=== PATIENT | female | born 1945 | race Caucasian/White ===

== ENCOUNTER → 2016-12-27 | Outpatient (CLI) | payer MEDICARE ==
[~2016-12-27] MED LIST: AMIT75TA PO; ASCO10004 PO; CALC600T4 PO; CHOL2000 PO; GABA300C10 PO; GLUC100015 PO; MAGN300C PO; MELO-190 PO; OMEG500C PO; POTA99TA8 PO
[2016-12-27 09:20] LABS: HEMOGLOBIN 14.7 g/dL (11.7-16.4)
[2016-12-27 09:32] LABS: ASPARTATE AMINO TRANSFERASE 18 U/L (15-37); BLOOD UREA NITROGEN 25 mg/dL (7-18)
[2016-12-28 13:06] LABS: THYROGLOBULIN AB <1.0 IU/mL (0.0-0.9)
== END | disposition home or self-care (01) ==
LOC: STAR 08:13
PROVIDERS: ATTEND Surgery
DX: Z01.818 Encounter for other preprocedural examination (principal)
CPT/HCPCS: 36415; 71020; 80053; 84432; 85025; 86800; 93005

== ENCOUNTER 2017-01-01 10:31 | Observation (INO) | payer MEDICARE ==
[~2017-01-01] VITALS: Ht 167.6 cm; Wt 90.5 kg
[2017-01-01] MEDS ORDERED: OXYcodone/APAP 5/325MG TABLET PO PRN (11:00)
[2017-01-01] MEDS ORDERED: HYDROmorphone 1 MG/ML, 1ML IV PRN ×2 (11:00→13:30)
[2017-01-01] MEDS ORDERED: DIPHENHYDRAMINE 50 MG/ML, 1ML IV PRN (11:00)
[2017-01-01] MEDS ORDERED: DIPHENHYDRAMINE 25 MG CAPSULE PO PRN (11:00)
[2017-01-01] MEDS ORDERED: ACETAMINOPHEN 500 MG TABLET PO ONE (11:00)
[2017-01-01] MEDS ORDERED: ONDANSETRON 2MG/ML, 2ML IVPush PRN (11:00)
[2017-01-01] MEDS: LACTATED RINGERS 1,000 ML IV SCH ×2 (11:16→19:15)
[2017-01-01 11:22] VITALS: BP 145/94
[2017-01-01] MEDS ORDERED: FENTANYL PF 250 MCG/5ML ONE (12:39)
[2017-01-01] MEDS ORDERED: PROPOFOL 10 MG/ML, 20ML ONE (12:40)
[2017-01-01] MEDS ORDERED: EPHEDRINE 50 MG/ML, 1ML ONE (12:40)
[2017-01-01] MEDS ORDERED: ONDANSETRON 2MG/ML, 2ML ONE (12:40)
[2017-01-01] MEDS ORDERED: DEXAMETHASONE 4 MG/ML, 1ML ONE (12:40)
[2017-01-01] MEDS ORDERED: SUCCINYLCHOLINE 20 MG/ML, 10ML ONE (12:40)
[2017-01-01] MEDS ORDERED: ALBUTEROL SULFATE 2.5 MG/3 ML NPPB PRN (13:30)
[2017-01-01] MEDS ORDERED: ACETAMINOPHEN 325 MG TABLET PO PRN (13:30)
[2017-01-01] MEDS ORDERED: hydrALAzine 20 MG/ML, 1ML IV PRN (13:30)
[2017-01-01] MEDS ORDERED: METOPROLOL 1 MG/ML, 5ML IV PRN (13:30)
[2017-01-01] MEDS ORDERED: OXYcodone 5 MG/5 ML ORAL.SOL UDC PO PRN (13:30)
[2017-01-01] MEDS ORDERED: OXYcodone 5 MG/5 ML ORAL.SOL UDC ONE (14:43)
[2017-01-01] MEDS ORDERED: ACETAMINOPHEN 650 MG/20.3 ML UDC ONE (14:43)
[2017-01-01] MEDS ORDERED: FENTANYL PF 100 MCG/2ML ONE (14:43)
[2017-01-01] MEDS: FENTANYL PF 100 MCG/2ML IV PRN ×2 (14:46→15:00)
[2017-01-01 17:51] VITALS: BP 115/68
[2017-01-01] MEDS: POTASSIUM CHLORIDE 20 MEQ in D5%-0.45% NACL 1,000 ML IV SCH ×3 (18:40→23:53)
[2017-01-01 20:23] VITALS: BP 113/61
[2017-01-01] MEDS ORDERED: GABAPENTIN 300 MG CAPSULE PO SCH (21:00)
[2017-01-02 00:15] VITALS: BP 104/54
[2017-01-02 04:04] VITALS: BP 108/63
[2017-01-02] MEDS ORDERED: LEVOTHYROXINE 125 MCG TABLET PO SCH (06:00)
[2017-01-02 07:40] VITALS: BP 128/64
[2017-01-02] MEDS ORDERED: AMITRIPTYLINE 25 MG TABLET PO SCH (09:00)
[2017-01-02] MEDS: POTASSIUM CHLORIDE 20 MEQ in D5%-0.45% NACL 1,000 ML IV SCH (10:30)
[2017-01-02 12:54] VITALS: BP 112/55
[2017-01-02] MEDS ORDERED: OXYC-302 PO (13:50)
[2017-01-02] MEDS ORDERED: LEVO125T PO (13:50)
== END 2017-01-02 14:06 | disposition home or self-care (01) ==
LOC: OUT 10:31 → ORIP 10:35 → 2NW 15:40 → 4NOR 15:40 → DCLOUNGE 01-02 13:45
PROVIDERS: ADMIT Surgery; ATTEND Surgery
DX: E04.2 Nontoxic multinodular goiter (principal); R22.1 Localized swelling, mass and lump, neck
CPT/HCPCS: 36415; 60240; 60512; 82040; 82310; 88307; 95865; 95940; C1760; G0378; J0330; J1100; J2405; J2704; J3010; J3480; J7120

== ENCOUNTER 2020-04-21 10:23 | Outpatient (CLI) | payer MEDICARE ==
[~2020-04-21 10:23] MED LIST changes: +LEVO125T PO; -MELO-190 PO; +MELO7.5T31 PO; +OXYC-302 PO
[2020-04-21 11:35] LABS: BASOPHILS # (AUTO) 0.03 x10^3/uL (0-0.1); BASOPHILS % (AUTO) 0 % (0-1); EOSINOPHILS # (AUTO) 0.27 x10^3/uL (0-0.4); EOSINOPHILS % (AUTO) 5 % (1-7); LYMPHOCYTES # (AUTO) 1.67 x10^3/uL (1-3.4); LYMPHOCYTES % (AUTO) 28 % (22-44); MD NO; MEAN CORPUSCULAR HEMOGLOBIN 31.1 pg (27.0-34.8); MEAN CORPUSCULAR HGB CONC 33.3 g/dL (32.4-35.8); MEAN CORPUSCULAR VOLUME 93.2 fL (80-100); MEAN PLATELET VOLUME 8.5 fL (7.4-10.4); MONOCYTES % (AUTO) 8 % (2-9); NEUTROPHILS # (AUTO) 3.43 x10^3/uL (1.8-6.8); NEUTROPHILS % (AUTO) 58 % (42-75); PLATELET COUNT 230 x10^3/uL (130-400); RED BLOOD COUNT 4.72 x10^6/uL (3.82-5.3); RED CELL DISTRIBUTION WIDTH 13.1 % (9.6-15.2)
[2020-04-21 11:40] LABS: INTERNATIONAL NORMALIZED RATIO 0.95 (0.93-1.1); PROTHROMBIN TIME 9.8 Seconds (9.6-11.5)
[2020-04-21 11:44] LABS: ANION GAP 3 mmol/L (5-15); CHLORIDE 109 mmol/L (98-107); CREATININE 0.88 mg/dL (0.55-1.02)
[2020-04-21] MEDS ORDERED: AMIT25TA PO (12:16)
== END 2020-04-21 23:59 | disposition home or self-care (01) ==
LOC: STAR 10:23
PROVIDERS: ATTEND Orthopaedic Surgery
DX: Z01.818 Encounter for other preprocedural examination (principal); M17.11 Unilateral primary osteoarthritis, right knee; Z79.899 Other long term (current) drug therapy
CPT/HCPCS: 36415; 80048; 83036; 85025; 85610; 85730; 87081; 87147; 87806; G0475

== ENCOUNTER 2020-04-22 09:28 | Outpatient (CLI) | payer MEDICARE ==
[~2020-04-22 09:28] MED LIST changes: +AMIT25TA PO
== END 2020-04-22 23:59 | disposition home or self-care (01) ==
LOC: STAR 09:28
PROVIDERS: ATTEND Anesthesiology
DX: Z01.818 Encounter for other preprocedural examination (principal); Z11.59 Encounter for screening for other viral diseases
CPT/HCPCS: 36415; 87635

== ENCOUNTER 2020-04-26 05:43 | Observation (INO) | payer MEDICARE ==
[~2020-04-26] VITALS: Ht 167.6 cm; Wt 88.6 kg
[2020-04-26] MEDS ORDERED: LACTATED RINGERS 1,000 ML IV SCH (06:08)
[2020-04-26 06:11] VITALS: BP 137/82
[2020-04-26] MEDS ORDERED: ACETAMINOPHEN 500 MG TABLET ONE (06:17)
[2020-04-26] MEDS ORDERED: CHLORHEXIDINE 15 ML UDC ONE (06:17)
[2020-04-26] MEDS ORDERED: GABAPENTIN 300 MG CAPSULE ONE (06:17)
[2020-04-26] MEDS ORDERED: SODIUM CHLORIDE 0.9% 50 ML ONE (06:20)
[2020-04-26] MEDS ORDERED: ROPIvacaine/PF 0.2%, 20 ML ONE (06:20)
[2020-04-26] MEDS ORDERED: KETOROLAC 60 MG/2 ML ONE (06:20)
[2020-04-26] MEDS ORDERED: TRANEXAMIC ACID 100 MG/ML, 10ML ONE (06:20)
[2020-04-26] MEDS ORDERED: EPINEPHRINE 1 MG/ML, 1ML ONE (06:21)
[2020-04-26] MEDS ORDERED: ACETAMINOPHEN 500 MG TABLET PO ONE (06:30)
[2020-04-26] MEDS ORDERED: CHLORHEXIDINE 15 ML UDC MM ONE (06:30)
[2020-04-26] MEDS ORDERED: GABAPENTIN 300 MG CAPSULE PO ONE (06:30)
[2020-04-26] MEDS ORDERED: MELOXICAM 15 MG TABLET PO ONE (06:40)
[2020-04-26] MEDS ORDERED: MIDAZOLAM 1 MG/ML, 2ML ONE (06:43)
[2020-04-26] MEDS ORDERED: FENTANYL PF 250 MCG/5ML ONE (06:43)
[2020-04-26] MEDS ORDERED: DIPHENHYDRAMINE 25 MG CAPSULE PO PRN (07:00)
[2020-04-26] MEDS ORDERED: HYDROmorphone 1 MG/ML, 1ML INJ IVPush PRN ×2 (07:00→07:30)
[2020-04-26] MEDS ORDERED: ACETAMINOPHEN 650 MG/20.3 ML UDC PO PRN (07:00)
[2020-04-26] MEDS ORDERED: OXYcodone IR 5MG TABLET PO PRN (07:00)
[2020-04-26] MEDS ORDERED: POLYETHYLENE GLYCOL 17 GM PACKET PO PRN (07:00)
[2020-04-26] MEDS ORDERED: ONDANSETRON 4 MG TABLET PO PRN (07:00)
[2020-04-26] MEDS ORDERED: DIPHENHYDRAMINE 50 MG/ML, 1ML IVPush PRN (07:00)
[2020-04-26] MEDS ORDERED: MAGNESIUM HYDROXIDE 8%, 30ML UDC PO PRN (07:00)
[2020-04-26] MEDS ORDERED: ALUMINUM/MAG/SIMETHICONE 30 ML UDC PO PRN (07:00)
[2020-04-26] MEDS ORDERED: SENNA/DOCUSATE TABLET PO PRN (07:00)
[2020-04-26] MEDS ORDERED: ONDANSETRON 2MG/ML, 2ML IVPush PRN (07:00)
[2020-04-26] MEDS ORDERED: LABETALOL 5MG/ML, 20ML IV PRN (07:30)
[2020-04-26] MEDS ORDERED: MEPERIDINE/PF 25MG/0.5ML IVPush PRN (07:30)
[2020-04-26] MEDS ORDERED: OXYcodone 5 MG/5 ML ORAL.SOL UDC PO PRN (07:30)
[2020-04-26] MEDS ORDERED: PROMETHAZINE 25 MG/ML, 1ML IVPush PRN (07:30)
[2020-04-26] MEDS ORDERED: ACETAMINOPHEN 325 MG TABLET PO PRN (07:30)
[2020-04-26] MEDS ORDERED: hydrALAzine 20 MG/ML, 1ML IV PRN (07:30)
[2020-04-26] MEDS ORDERED: ALBUTEROL SULFATE 2.5 MG/3 ML NPPB PRN (07:30)
[2020-04-26] MEDS ORDERED: MIDAZOLAM 1 MG/ML, 2ML IV PRN (07:30)
[2020-04-26] MEDS ORDERED: ONDANSETRON 2MG/ML, 2ML ONE (07:35)
[2020-04-26] MEDS ORDERED: BUPIVACAINE/PF 0.5% ONE (07:35)
[2020-04-26] MEDS ORDERED: DEXAMETHASONE 4 MG/ML, 1ML ONE (07:35)
[2020-04-26] MEDS ORDERED: CEFAZOLIN 1,000 MG ONE (07:35)
[2020-04-26] MEDS ORDERED: LIDOCAINE-MPF 2% ,5ML ONE ×2 (07:35)
[2020-04-26] MEDS ORDERED: PROPOFOL 10 MG/ML, 20ML ONE (07:35)
[2020-04-26] MEDS ORDERED: TRANEXAMIC ACID 1,000 MG in SODIUM CHLORIDE 0.9% 100 ML IVPB ONE (08:41)
[2020-04-26] MEDS ORDERED: FENTANYL PF 100 MCG/2ML ONE (09:33)
[2020-04-26] MEDS: FENTANYL PF 100 MCG/2ML IV PRN ×2 (09:34→09:39)
[2020-04-26 10:00] VITALS: BP 100/64
[2020-04-26] MEDS: POTASSIUM CHLORIDE 20 MEQ in D5%-0.45% NACL 1,000 ML IV SCH ×2 (11:43→16:54)
[2020-04-26] MEDS: DOCUSATE 100 MG CAPSULE PO SCH ×2 (11:43→20:26)
[2020-04-26] MEDS: KETOROLAC 30 MG/1 ML IV SCH ×2 (14:03→22:59)
[2020-04-26] MEDS ORDERED: ASPI81TA45 PO (15:07)
[2020-04-26 16:00] VITALS: BP 109/62
[2020-04-26] MEDS: ASPIRIN 81 MG TABLET EC PO SCH (18:29)
[2020-04-26] MEDS: CEFAZOLIN PMX 1GM/50ML 50 ML IVPB SCH (18:29)
[2020-04-26 20:11] VITALS: BP 111/62
[2020-04-26] MEDS: GABAPENTIN 300 MG CAPSULE PO SCH (20:26)
[2020-04-26] MEDS ORDERED: AMITRIPTYLINE 25 MG TABLET PO SCH (21:00)
[2020-04-26 23:00] VITALS: BP 106/53
[2020-04-27] MEDS: POTASSIUM CHLORIDE 20 MEQ in D5%-0.45% NACL 1,000 ML IV SCH (03:00)
[2020-04-27] MEDS: CEFAZOLIN PMX 1GM/50ML 50 ML IVPB SCH (03:03)
[2020-04-27 03:07] VITALS: BP 114/70
[2020-04-27] MEDS: KETOROLAC 30 MG/1 ML IV SCH (05:50)
[2020-04-27] MEDS ORDERED: LEVOTHYROXINE 125 MCG TABLET PO SCH (06:00)
[2020-04-27] MEDS ORDERED: DEXAMETHASONE 4 MG/ML, 1ML IVPush ONE (06:00)
[2020-04-27 07:38] VITALS: BP 105/61
[2020-04-27] MEDS: DOCUSATE 100 MG CAPSULE PO SCH (08:31)
[2020-04-27] MEDS: ASPIRIN 81 MG TABLET EC PO SCH (08:31)
[2020-04-27] MEDS: GABAPENTIN 300 MG CAPSULE PO SCH (08:31)
[2020-04-27] MEDS ORDERED: MELOXICAM 15 MG TABLET PO SCH (21:00)
== END 2020-04-27 09:02 | disposition home or self-care (01) ==
LOC: OUT 05:43 → ORIP 06:48 → 4NE 09:58
PROVIDERS: ADMIT Orthopaedic Surgery; ATTEND Orthopaedic Surgery
DX: M17.11 Unilateral primary osteoarthritis, right knee (principal); E03.9 Hypothyroidism, unspecified; Z79.899 Other long term (current) drug therapy
CPT/HCPCS: 27447; 36415; 73560; 85014; 85018; 96361; 96365; 96366; 96375; 96376; 97161; 97530; C1713; C1776; G0378; J0171; J0690; J1100; J1885; J2250; J2405; J2704; J2795; J3010; J3480; J3490; J7120; S0020

== ENCOUNTER 2020-11-16 08:53 | Day surgery (SDC) | payer MEDICARE ==
[~2020-11-16] VITALS: Ht 167.6 cm; Wt 88.8 kg
[~2020-11-16 08:53] MED LIST changes: +ASCO100018 PO; -ASCO10004 PO; +ASPI81TA45 PO; +ATOR10TA9 PO; +BUPIVACAINE LIPOSOME/PF 10ML INFIL ONE; +BUPIVACAINE/PF 0.5% ONE; -CALC600T4 PO; +CALC600T60 PO; +CLINDAMYCIN 150 MG/ML, 6ML ONE; -OXYC-302 PO; +OXYC1TAB14 PO; +TRANEXAMIC ACID 100 MG/ML, 10ML ONE
[2020-11-16 09:16] VITALS: BP 136/84
[2020-11-16] MEDS ORDERED: CHLORHEXIDINE 15 ML UDC ONE (09:28)
[2020-11-16] MEDS ORDERED: CHLORHEXIDINE 15 ML UDC MM ONE (09:30)
[2020-11-16] MEDS ORDERED: LACTATED RINGERS 1,000 ML IV SCH (10:00)
[2020-11-16] MEDS ORDERED: MIDAZOLAM 1 MG/ML, 2ML ONE (10:19)
[2020-11-16] MEDS ORDERED: FENTANYL PF 100 MCG/2ML ONE (10:19)
[2020-11-16] MEDS ORDERED: SODIUM CHLORIDE 0.9% 0 ML ONE (11:21)
[2020-11-16] MEDS ORDERED: methylPREDNISolone*ACETATE* 80 MG/ML ONE (11:21)
[2020-11-16] MEDS ORDERED: BUPIVACAINE/PF 0.5% ONE (11:21)
[2020-11-16] MEDS ORDERED: PHENYLEPHRINE 10 MG/ML ONE (11:43)
[2020-11-16] MEDS ORDERED: CEFAZOLIN 1,000 MG ONE (11:43)
[2020-11-16] MEDS ORDERED: DEXAMETHASONE 4 MG/ML, 1ML ONE (11:43)
[2020-11-16] MEDS ORDERED: NEOSTIGMINE 1 MG/ML, 10ML ONE (11:43)
[2020-11-16] MEDS ORDERED: ONDANSETRON 2MG/ML, 2ML ONE (11:43)
[2020-11-16] MEDS ORDERED: ROCURONIUM 10 MG/ML,10ML ONE (11:43)
[2020-11-16] MEDS ORDERED: GLYCOPYRROLATE 0.2MG/1ML, 5ML ONE (11:43)
[2020-11-16] MEDS ORDERED: PROPOFOL 10 MG/ML, 20ML ONE (11:43)
[2020-11-16] MEDS ORDERED: hydrALAzine 20 MG/ML, 1ML IV PRN (13:00)
[2020-11-16] MEDS ORDERED: ALBUTEROL SULFATE 2.5 MG/3 ML NPPB PRN (13:00)
[2020-11-16] MEDS ORDERED: PROMETHAZINE 25 MG/ML, 1ML IVPush PRN (13:00)
[2020-11-16] MEDS ORDERED: LABETALOL 5MG/ML, 20ML IV PRN (13:00)
[2020-11-16] MEDS ORDERED: HYDROmorphone 1 MG/ML, 1ML INJ IVPush PRN (13:00)
[2020-11-16] MEDS ORDERED: FENTANYL PF 100 MCG/2ML IV PRN (13:00)
[2020-11-16] MEDS ORDERED: MEPERIDINE/PF 25MG/0.5ML IVPush PRN (13:00)
[2020-11-16] MEDS ORDERED: LORazepam 2 MG/ML, 1ML IVPush PRN (13:00)
[2020-11-16] MEDS ORDERED: OXYcodone 5 MG/5 ML ORAL.SOL UDC PO PRN (13:00)
[2020-11-16] MEDS ORDERED: ACETAMINOPHEN 325 MG TABLET PO PRN (13:00)
[2020-11-16] MEDS ORDERED: AMITRIPTYLINE 25 MG TABLET PO SCH (21:00)
[2020-11-16] MEDS ORDERED: ATORVASTATIN 10 MG TABLET PO SCH (21:00)
[2020-11-17] MEDS ORDERED: LEVOTHYROXINE 125 MCG TABLET PO SCH (06:00)
[2020-11-17] MEDS ORDERED: GABAPENTIN 300 MG CAPSULE PO SCH (09:00)
== END 2020-11-16 16:43 | disposition home or self-care (01) ==
LOC: OUT 08:53
PROVIDERS: ATTEND Orthopaedic Surgery
DX: M19.012 Primary osteoarthritis, left shoulder (principal); M19.011 Primary osteoarthritis, right shoulder; M25.712 Osteophyte, left shoulder; G89.18 Other acute postprocedural pain; I10 Essential (primary) hypertension; E78.5 Hyperlipidemia, unspecified; Z79.1 Long term (current) use of non-steroidal anti-inflammatories (NSAID); Z79.890 Hormone replacement therapy; Z79.891 Long term (current) use of opiate analgesic; Z79.899 Other long term (current) drug therapy; Z88.2 Allergy status to sulfonamides; Z98.890 Other specified postprocedural states
CPT/HCPCS: 20610; 23472; 64415; C1713; C1769; C1776; J0690; J1040; J1100; J2250; J2370; J2405; J2704; J2710; J3010